=== PATIENT | female | born 1960 | race Two or more races ===

== ENCOUNTER 2025-01-24 11:15 | Emergency (ER) | payer MEDICAID, SELFPAY ==
--- NOTE | 2025-01-24 11:25 | EKG_ITS ---
[facility] Test Date: 2025-01-24 Pat Name: GLENROY PERRY Department: Room: - Gender: Female Software Project Manager: : 1960 Requested By: Iris Rosario Order Number: [id number] Reading MD: Iris Rosario Measurements Intervals [place] Rate: 65 P: 47 IA: 181 QRS: 16 QRSD: 70 T: 56 QT: 405 QTc: 422 Interpretive Statements SINUS RHYTHM LOW QRS VOLTAGE IN PRECORDIAL LEADS [QRS DEFLECTION < 1.0 mV IN CHEST LEADS] No previous ECG available for comparison /[id number]
[2025-01-24 11:29] VITALS: BP 148/72; PULSE 73; RESP 20; TEMP 36.9; O2SAT 97
--- NOTE | 2025-01-24 11:36 | PD.EDWEAK ---
ED Weakness RME/HPI General Chief complaint: General Adult/Misc Complain Stated complaint: L) VISION/SPEECH CHANGES, L) FACE SWELLING, LKW ? Time Seen by Provider: 01/24/25 11:25 Arrival date/time: 01/24/25 11:15 Limitations: no limitations RME / HPI RME / HPI Narrative: 65-year-old female who is here today with multiple complaints that have been occurring for the past 3 months. She was sent here by her clinic for evaluation. She states she has had intermittent dizziness and weakness for 3 months. She has a sensation that her left side of her face is full. She has blurry vision in her left eye. She states she can feel a ball on her scalp. This is all been occurring for at least 3 months. She has no acute changes. Related Data Allergies Allergy/AdvReac Type Severity Reaction Status Date / Time No Known Allergies Allergy Verified 01/24/25 11:24 Review of Systems Review of Systems Systems Reviewed: All systems reviewed, normal except as documented ED Exam General Limitations: Present no limitations General appearance: Present alert and in no apparent distress Head Head exam: Present atraumatic Eye Eye exam: Present normal appearance, PERRL and EOMI ENT ENT exam: Present normal exam, normal oropharynx and mucous membranes moist Neck Neck exam: Present normal inspection, full ROM and trachea midline Chest Chest inspection: Present normal inspection and symmetric chest wall rise Respiratory Respiratory exam: Present normal lung sounds bilaterally Cardiovascular Cardiovascular exam: Present regular rate, normal rhythm and normal heart sounds Abdominal Exam Abdominal exam: Present soft and normal bowel sounds Extremities Exam Extremities exam: Present normal inspection and full ROM Back Exam Back exam: Present normal inspection and full ROM Neurological Exam Neurological exam: Present alert, oriented X3 and other (Mild left-sided lip droop. Facial nerves otherwise intact.) Psychiatric Psychiatric exam: Present normal affect and normal mood Skin Skin exam: Present warm, dry, intact and normal color Course Quality Measures none Orders Category Date Time Status EKG (ED ONLY) *Do not use* NOW Care 01/24/25 11:26 Completed EKG (ED Only) Stat Exams 01/24/25 11:25 Draft CBC Stat Lab 01/24/25 11:43 Completed CMP [Comprehensive Metabolic Panel] Stat Lab 01/24/25 11:43 Completed UA [Urinalysis] Stat Lab 01/24/25 13:45 Completed Vital Signs Vital signs: Vital Signs Temperature 98.5 F 01/24/25 11:29 Pulse Rate 73 01/24/25 11:29 Respiratory Rate 20 01/24/25 11:29 Blood Pressure 148/72 H 01/24/25 11:29 Pulse Oximetry (%) 97 01/24/25 11:29 Oxygen Delivery Method Room Air 01/24/25 11:29 Weakness MDM Narrative MDM Narrative:: 65-year-old female who is here today with left-sided headache and a sensation of left-sided facial fullness and paresthesias for 3 months. She has had some left vision changes for the past 3 months. She was seen in a walk-in clinic and routed here today for further evaluation. She denies any acute changes. On exam, patient is nontoxic-appearing in no visible signs distress. She has a questionable asymmetrical smile that she states has been ongoing for several months without any acute changes. Cranials are otherwise intact. Her CBC is unremarkable. She has a elevated AST at 47, ALT at 67, and alk phos at 124. Urinalysis is consistent with a contaminated sample. She has no dysuria or flank pain. She has no fevers. We discussed the need to follow-up as an outpatient. Differential includes prior stroke, trigeminal neuralgia, chronic headaches. She may benefit from an outpatient MRI. Will also refer her to neurology for outpatient consultation. She is invited return here for any sudden or emergent changes. Patient data External records reviewed:: Other (specify) (Note from [facility] from her visit today.) Clinical information provided by:: patient Social determinants that could affect healthcare access:: none Patient has the following chronic illnesses:: Hyperlipidemia. How is presenting disease/condition affected by chronic disease/condition?: no chronic disease Evaluation data The following diagnostics were reviewed and interpreted by me:: lab results Lab and/or radiology exams considered but not ordered:: see above Interpretation Summary: Mildly elevated liver enzymes, workup was otherwise unremarkable Medications / Prescriptions Medications or Prescriptions considered but not ordered:: n/a Medication administrations:: n/a Consultations Consultation(s) initiated? (list below): No Diagnosis Weakness Differential Diagnosis: anemia, hypoglycemia, dehydration and other (Prior stroke, trigeminal neuralgia) Most likely diagnosis given after review of the tests above:: Chronic headache Admission Indicated Admission indicated?: not indicated Admission Request Was there a request for admission?: No Disposition Plan Disposition Plan: Discharge Discharge Attestation Discharge Attestation: The patient and all family members were given an opportunity to ask questions and understood the discharge instructions. Discharge instructions specifically effects, indications for sooner follow up or return to the emergency department, and the expected course of current diagnosis. Patient condition: Stable Discharge Plan Plan Patient Disposition: HOME (Self Care) Patient condition on transfer: Stable Prescriptions/Referrals Referrals: Jonnathan Navas MD [Primary Care Provider] - In 1 week Rayshawn Brito MD [Physician] - In 1 week Problem List Clinical Impression: Chronic headache Patient/Caregiver Discharge Instructions Education Materials: Understanding Headache Pain Additional Instructions: - Use Tylenol and ibuprofen for comfort. - A CT scan may not be helpful with your 3-month history of headaches. You may consider outpatient MRI. - Please follow-up with your primary doctor. - You may also contact neurology to schedule follow-up appointment. - Return to the emergency room for any sudden or emergent changes. Print Language: Argentine Stand Alone Forms: [employer]iana Award Info., Patient Portal Info Letter
[2025-01-24 12:26] LABS: Basophils # (Auto) 0.1 Thou/mm3 (0.0-0.2); Basophils % (Auto) 1 % (0-2.5); Eosinophils # (Auto) 0.2 Thou/mm3 (0.0-0.5); Eosinophils % (Auto) 3 % (0-10); Hematocrit 41.5 % (36.0-46.0); Hemoglobin 14.6 g/dL (12.0-16.0); Immature Granulocytes Auto 0.02 Thou/mm3 (0.00-0.00); Lymphocytes # (Auto) 3.1 Thou/mm3 (1.0-4.8); Lymphocytes % (Auto) 37 % (10-50); Mean Corpuscular HGB Conc 35.2 g/dl (31.0-37.0); Mean Corpuscular Hemoglobin 30.0 pg (25.0-35.0); Mean Corpuscular Volume 85 fL (80-100); Monocytes # (Auto) 0.7 Thou/mm3 (0.0-0.8); Monocytes % (Auto) 8 % (0-12); Neutrophils # (Auto) 4.4 Thou/mm3 (1.8-7.7); Neutrophils % (Auto) 52 % (37-80); Nucleated Red Blood Cell # 0.00 Thou/mm3 (0.00-0.00); Nucleated Red Blood Cell % 0 /100 WBC (0); Platelet Count 267 Thou/mm3 (140-440); RDW Standard Deviation 40.7 fL (36.4-46.3); Red Blood Count 4.86 Miln/mm3 (4.00-5.20); White Blood Count 8.5 Thou/mm3 (3.6-11.0)
[2025-01-24 12:42] LABS: Alanine Aminotransferase 67 U/L (10-49); Albumin, Serum 4.2 gm/dL (3.4-4.8); Albumin/Globulin Ratio 1.5 (1.2-2.2); Alkaline Phosphatase 124 U/L (46-116); Anion Gap 10 (7-16); Aspartate Amino Transferase 47 U/L (0-34); BUN/Creatinine Ratio 14 Ratio (12-20); Bilirubin,Total 0.6 mg/dL (0.3-1.2); Blood Urea Nitrogen 11 mg/dL (9-23); Calcium 9.4 mg/dL (8.3-10.6); Calcium (Corrected) 9.4 mg/dL (8.5-10.1); Carbon Dioxide 26.6 mMol/L (20.0-31.0); Chloride 105 mMol/L (98-107); Creatinine (Component) 0.8 mg/dL (0.6-1.3); Globulin 2.8 gm/dL (2.3-3.5); Glucose 101 mg/dL (74-106); Osmolality,Calculated 282 (275-295); Potassium 4.1 mMol/L (3.4-5.1); Sodium 142 mMol/L (136-145); Total Protein 7.0 gm/dL (5.7-8.2); eGFR > 60 See Note
[2025-01-24 14:03] LABS: Collection Type, Urine Voided
[2025-01-24 14:16] LABS: Bilirubin,Urine Negative (Negative); Blood,Urine Negative (Negative); Clarity,Urine Turbid (Clear/Hazy); Color,Urine Lt-Yellow (Lt Yel-Yel); Glucose, Urine Negative (Negative); Ketones,Urine Negative (Negative); Leukocyte Esterase,Urine Positive (Negative); Nitrite,Urine Negative (Negative); PH,Urine 6.0 (5.0-7.0); Protein,Urine Negative (Neg - Trace); RBC,Urine 4 /hpf (0-3); Specific Gravity,Urine 1.019 (1.001-1.035); Squamous Epithelial Cell,Urine 11 /hpf (0-5); Urobilinogen,Urine Negative mg/dL (0.0-1.0); WBC,Urine 22 /hpf (0-5)
[2025-01-24 15:05] VITALS: BP 137/76; PULSE 65; RESP 17; TEMP 36.7; O2SAT 95
== END 2025-01-24 15:52 | disposition home or self-care (01) ==
PROVIDERS: Emergency Provider Physician Assistant Medical; PCP Family Medicine
DX: R51.9 Headache, unspecified (principal); G89.29 Other chronic pain; R94.31 Abnormal electrocardiogram [ECG] [EKG]
CPT/HCPCS: 36415; 80053; 81001; 85025; 93005; 99283

== ENCOUNTER → 2025-04-15 | Outpatient (CLI) | payer MEDICAID, SELFPAY ==
--- NOTE | 2025-04-15 08:45 | XR_ITS ---
Examination: MRI brain with intravenous contrast Technique: Axial sagittal coronal brain MRI images post intravenous administration 14 cc gadolinium Date and time: April 15 2025, 0926 hrs. Indications: Blurred vision, swelling on the left side of the head, headaches, hearing loss left ear, paresthesias in the left side of the face 4 months Findings: Ventricles are normal in size and configuration. No mass effect upon the ventricular system No effacement sulcal markings Pituitary is not enlarged No pituitary microadenoma No abnormal enhancing cerebellar or cerebral lesions Chronic ethmoid, sphenoid, frontal sinusitis Impression: Negative for acute hemorrhage, mass effect or midline shift Negative for mastoiditis No abnormal enhancing cerebellar or cerebral lesions
== END | disposition home or self-care (01) ==
LOC: SMRI 08:37
PROVIDERS: PCP Physician Assistant; Referring Provider Physician Assistant; Visit Provider Physician Assistant
DX: R51.9 Headache, unspecified (principal)
CPT/HCPCS: 70552; A9577